=== PATIENT | male | born 1990 | race Caucasian/White ===

== ENCOUNTER 2020-08-29 14:10 | Outpatient (REF) | payer MEDICAID, SELFPAY ==
--- NOTE | ~2020-08-29 | XR_ITS ---
EXAMINATION: XR HAND, RIGHT CLINICAL INFORMATION: Pain in right fingers. COMPARISON: None TECHNIQUE: PA, lateral, and oblique views of the right hand. FINDINGS: No fracture or dislocation. Normal carpal alignment. No significant joint space narrowing or marginal osteophytes. No osseous erosion. No periarticular osteopenia. No abnormal soft tissue calcification. XR/XR hand RT min 3V IMPRESSION: Unremarkable examination.
[2020-08-29 15:22] LABS: Uric Acid 6.8 mg/dL (3.4-7.0)
[2020-08-30 18:16] LABS: Lyme Abs Screen <0.90 index
== END 2020-08-29 14:11 | disposition home or self-care (01) ==
LOC: HO.LAB 14:10
PROVIDERS: Absent Provider Internal Medicine; PCP Internal Medicine; Visit Provider Emergency Medicine
DX: M79.644 Pain in right finger(s) (principal)
CPT/HCPCS: 36415; 73130; 84550; 86617; 86618

== ENCOUNTER 2022-02-11 | Outpatient (REF) | payer MEDICAID, SELFPAY ==
--- NOTE | ~2022-02-11 | XR_ITS ---
EXAMINATION: XR KNEE, BILATERAL CLINICAL INFORMATION: Pain. COMPARISON: None TECHNIQUE: 3 views of each knee. FINDINGS: Right: Bone alignment is normal. No fracture or dislocation. Lucency in the lateral aspect of the medial femoral condyle questionable for old osteochondritis dissecans or subchondral injury. Soft tissue calcification projecting over the suprapatellar bursae questionable for ossified loose body. No joint effusion. Normal-appearing joint spaces. Left: Bone alignment is normal. No fracture or dislocation. Normal joint spaces. Small joint effusion. Osteophyte at the patellar tendon insertion to the tibial tuberosity. XR/XR knee standing BI IMPRESSION: Left: Small joint effusion. Osteophyte at the patellar tendon insertion to the tibial tuberosity. Right: Question old osteochondritis dissecans or subchondral injury to the lateral aspect of the medial femoral condyle. Soft tissue ossification over the suprapatellar bursa questionable for ossified intra-articular loose body.
--- NOTE | ~2022-02-11 | XR_ITS ---
EXAMINATION: XR KNEE, BILATERAL CLINICAL INFORMATION: Pain. COMPARISON: None TECHNIQUE: 3 views of each knee. FINDINGS: Right: Bone alignment is normal. No fracture or dislocation. Lucency in the lateral aspect of the medial femoral condyle questionable for old osteochondritis dissecans or subchondral injury. Soft tissue calcification projecting over the suprapatellar bursae questionable for ossified loose body. No joint effusion. Normal-appearing joint spaces. Left: Bone alignment is normal. No fracture or dislocation. Normal joint spaces. Small joint effusion. Osteophyte at the patellar tendon insertion to the tibial tuberosity. XR/XR knee RT 2V IMPRESSION: Left: Small joint effusion. Osteophyte at the patellar tendon insertion to the tibial tuberosity. Right: Question old osteochondritis dissecans or subchondral injury to the lateral aspect of the medial femoral condyle. Soft tissue ossification over the suprapatellar bursa questionable for ossified intra-articular loose body.
--- NOTE | ~2022-02-11 | XR_ITS ---
EXAMINATION: XR KNEE, BILATERAL CLINICAL INFORMATION: Pain. COMPARISON: None TECHNIQUE: 3 views of each knee. FINDINGS: Right: Bone alignment is normal. No fracture or dislocation. Lucency in the lateral aspect of the medial femoral condyle questionable for old osteochondritis dissecans or subchondral injury. Soft tissue calcification projecting over the suprapatellar bursae questionable for ossified loose body. No joint effusion. Normal-appearing joint spaces. Left: Bone alignment is normal. No fracture or dislocation. Normal joint spaces. Small joint effusion. Osteophyte at the patellar tendon insertion to the tibial tuberosity. XR/XR knee LT 2V IMPRESSION: Left: Small joint effusion. Osteophyte at the patellar tendon insertion to the tibial tuberosity. Right: Question old osteochondritis dissecans or subchondral injury to the lateral aspect of the medial femoral condyle. Soft tissue ossification over the suprapatellar bursa questionable for ossified intra-articular loose body.
== END 2022-02-11 00:01 | disposition home or self-care (01) ==
LOC: HO.HOSX
PROVIDERS: Visit Provider Physician Assistant
DX: M17.12 Unilateral primary osteoarthritis, left knee (principal); M17.11 Unilateral primary osteoarthritis, right knee; M23.42 Loose body in knee, left knee; M23.41 Loose body in knee, right knee; M22.2X9 Patellofemoral disorders, unspecified knee
CPT/HCPCS: 73560; 73565; 99202

== ENCOUNTER 2022-02-27 15:02 | Outpatient (REF) | payer MEDICAID, SELFPAY ==
--- NOTE | ~2022-02-27 | MR_ITS ---
EXAMINATION: MR KNEE WITHOUT CONTRAST, RIGHT CLINICAL INFORMATION: Right knee pain. Osteoarthritis. Question osteochondritis dissecans. COMPARISON: Right knee radiographs dated 02/11/2022. TECHNIQUE: MRI of the knee without contrast was performed using routine sequences on a high-field scanner. FINDINGS: MENISCI: Medial Meniscus: Intact. Lateral Meniscus: Intact. LIGAMENTS: Cruciate: Intact. Collateral: Intact. EXTENSOR MECHANISM: Intact. ARTICULAR CARTILAGE/BONE: Patellofemoral Compartment: Intact articular cartilage. Medial Compartment: Osteochondral lesion at the weightbearing medial femoral condyle measuring approximately 2.6 x 1.9 cm (AP by ML) with a depth of 1.1 cm. There is overlying articular cartilage signal heterogeneity and surface irregularity with underlying subchondral cystic change and marrow edema. Lateral Compartment: Intact articular cartilage. JOINT FLUID AND BURSAE: Trace joint effusion. Osteochondral loose body within the lateral aspect of the suprapatellar joint recess measuring approximately 0.7 x 1.6 x 1.9 cm. MR/MR knee RT wo con IMPRESSION: 1. Osteochondral lesion at the weightbearing medial femoral condyle measuring up to 2.6 x 1.9 cm (AP by ML) with a depth of 1.1 cm. Overlying articular cartilage signal heterogeneity and surface irregularity with underlying subchondral cystic change and marrow edema. Osteochondral loose body within the lateral aspect of the suprapatellar joint recess measuring up to 1.9 cm. 2. Trace joint effusion. 3. No acute meniscal or ligamentous injury.
--- NOTE | ~2022-02-27 | MR_ITS ---
EXAMINATION: MR KNEE WITHOUT CONTRAST, LEFT CLINICAL INFORMATION: Left knee pain. Osteoarthritis. COMPARISON: Left knee radiographs dated 02/11/2022. TECHNIQUE: MRI of the knee without contrast was performed using routine sequences on a high-field scanner. FINDINGS: MENISCI: Medial Meniscus: Intact Lateral Meniscus: Intact LIGAMENTS: Cruciate: Intact Collateral: Intact EXTENSOR MECHANISM: Intact ARTICULAR CARTILAGE/BONE: Patellofemoral Compartment: Intact articular cartilage. Medial Compartment: Intact articular cartilage. Lateral Compartment: Osteochondral lesion at the superior aspect of the lateral tibial spine measuring 0.6 cm in ML dimension with prominent underlying marrow edema. Adjacent lateral tibial plateau and lateral femoral condyle signal heterogeneity and surface irregularity with tiny marginal osteophytes. JOINT FLUID AND BURSAE: Trace joint effusion. Osteochondral loose body anterior to the lateral meniscus measuring up to 0.7 cm in greatest dimension. MR/MR knee LT wo con IMPRESSION: 1. Osteochondral lesion at the superior aspect of the lateral tibial spine measuring up to 0.6 cm with prominent underlying marrow edema. Osteochondral loose body anterior to the lateral meniscus measuring up to 0.7 cm. 2. Mild lateral compartment arthrosis. Trace joint effusion. 3. No acute meniscal or ligamentous injury.
== END 2022-02-27 15:03 | disposition home or self-care (01) ==
LOC: HO.MRI 15:02
PROVIDERS: Visit Provider Physician Assistant
DX: M17.0 Bilateral primary osteoarthritis of knee (principal); M24.00 Loose body in unspecified joint
CPT/HCPCS: 73721

== ENCOUNTER → 2022-03-25 10:41 | Outpatient (BNVA) | payer MEDICAID, SELFPAY | PROVIDERS: PCP Internal Medicine; Visit Provider Physician Assistant | DX: M89.9 Disorder of bone, unspecified (principal); M94.9 Disorder of cartilage, unspecified; M23.42 Loose body in knee, left knee | CPT/HCPCS: 99212 ==

== ENCOUNTER → 2022-04-09 10:36 | Outpatient (BNVA) | payer MEDICAID, SELFPAY | PROVIDERS: PCP Internal Medicine; Visit Provider Orthopaedic Surgery | DX: M89.9 Disorder of bone, unspecified (principal); M94.9 Disorder of cartilage, unspecified | CPT/HCPCS: 99212 ==

== ENCOUNTER 2023-02-18 12:26 | Outpatient (AMB) | payer MEDICAID, SELFPAY ==
--- NOTE | 2023-02-18 12:28 | MHC.OFFVIS ---
Intake Intake Visit Reasons: OV-Right knee - Discuss Arthroscopy Intake Note: Lillian is a 32 year old male who presents today for a follow up of his right knee pain. At his last appt Arthroscopic surgery was discussed but patient was not ready to undergo surgery at that time. Since then his pain has increased and is interested in surgical intervention. Allergies No Known Allergies [No Known Allergies*] Allergy (Verified 04/09/22 11:00) HPI OV-Right knee - Discuss Arthroscopy HPI Details Lillian is a 32 year old man who returns to discuss surgery for his right knee. He was last seen on 04/09/22 for an MRI review, and knee was discussed due to a possible loose body and osteochondral lesion in his knee. He returns today saying his pain has increased and he would like to discuss surgery again. He has catching and giving way and feels like there is something catching. PFSH Medical History Heart murmur Social History Patient Tobacco Use Status: Never used Tobacco Current occupational status: unemployed Review of Systems Const All systems reviewed & are unremarkable except as noted in HPI and below Physical Exam Const General: no acute distress, alert and awake Orientation/consciousness: patient oriented x3 HEENT Head: Yes normocephalic and Yes atraumatic Eyes EOM: EOMs intact bilaterally Resp Effort & Inspection: normal respiratory effort and able to speak in complete sentences Cardio Jugular venous distension: no JVD Skin General skin exam: turgor normal Rashes: no rashes Neuro General: patient oriented x3 Extrem Other: 1+ effusion over right knee with tenderness to palpation medial femoral condyle. + antalgic gait Psych Appearance: grossly normal Affect: normal affect Attitude: cooperative Results Reviewed Results Reviewed: I personally reviewed the MR images. Right knee: Osteochondral lesion at the weightbearing medial femoral condyle measuring up to 2.6 x 1.9 cm (AP by ML) with a depth of 1.1 cm. Overlying articular cartilage signal heterogeneity and surface irregularity with underlying subchondral cystic change and marrow edema. Osteochondral loose body within the lateral aspect of the suprapatellar joint recess measuring up to 1.9 cm. Assessment & Plan Assessment & Plan (1) Osteochondral lesion: Comment: Right knee. Code(s): M89.9 - Disorder of bone, unspecified; M94.9 - Disorder of cartilage, unspecified Plan: This is a 32 year old man with an osteochondral lesion and likely loose body in the right knee. He has pain with activity and WB, which has worsened since he was last seen. I discussed the diagnosis and treatment options.I recommend right knee chondroplasty, and loose body removal. I recommended two-stage surgery in which the 1st is exploration with removal of loose body and chondroplasty and in the future I do anticipate the need for osteochondral allograft. I discussed this with him. I discussed the risks, benefits, and alternatives including, but not limited to, the risk of pain, infection, stiffness, need for further surgery as well as potential medical complications such as blood clots, pulmonary embolism and cardiac complications. I discussed the recovery timeline and process as well as the importance of PT. Lillian is a good candidate for this surgery, and he wishes to proceed with this decision. He will speak with Krystal to schedule this procedure. Coding Level of Care Code Est Pt Level 4 (22918) Diagnoses Osteochondral lesion M89.9; M94.9
== END 2023-02-18 13:19 | disposition home or self-care (01) ==
PROVIDERS: PCP Internal Medicine; Visit Provider Orthopaedic Surgery
DX: M89.9 Disorder of bone, unspecified (principal); M94.9 Disorder of cartilage, unspecified
CPT/HCPCS: 99214

== ENCOUNTER → 2023-02-18 12:26 | Outpatient (BNVA) | payer MEDICAID, SELFPAY | PROVIDERS: PCP Internal Medicine; Visit Provider Orthopaedic Surgery | DX: M89.9 Disorder of bone, unspecified (principal); M94.9 Disorder of cartilage, unspecified | CPT/HCPCS: 99212 ==

== ENCOUNTER 2023-03-18 09:36 | Outpatient (AMB) | payer MEDICAID, SELFPAY ==
--- NOTE | 2023-03-18 09:37 | A.OFFVIS_ITS ---
Intake Intake Visit Reasons: Pre Op R knee 03/24/23 NE Intake Note: Lillian is a 32 year old male who presents today for a pre op appointment of his right knee 03/24/23 NE. Allergies No Known Allergies [No Known Allergies*] Allergy (Verified 04/09/22 11:00) HPI Pre Op R knee 03/24/23 NE HPI Details 32-year-old male who presents in the off ice today for his preoperative history and physical exam prior to a right knee arthroscopy to be performed on 03/24/[address] Diana. Patient has no known allergy history. Patient is not currently any medication. Patient has a medical history, as follows: -Heart murmur Patient has a surgical history, as follows: -History of an appendectomy [facility] Medical History Heart murmur Surgical History (Updated 03/18/23 @ 09:53 by Robin Goodson) History of appendectomy Social History Patient Tobacco Use Status: Never used Tobacco Current occupational status: unemployed Review of Systems Const All systems reviewed & are unremarkable except as noted in HPI and below Physical Exam Const General: no acute distress, alert and awake Orientation/consciousness: patient oriented x3 HEENT Head: Yes normocephalic and Yes atraumatic Eyes EOM: EOMs intact bilaterally Resp Effort & Inspection: normal respiratory effort and able to speak in complete sentences Cardio Jugular venous distension: no JVD Skin General skin exam: turgor normal Rashes: no rashes Neuro General: patient oriented x3 Extrem Other: Right knee: Skin is clean, dry, and intact 1+ effusion over right knee with tenderness to palpation medial femoral condyle. + antalgic gait Psych Appearance: grossly normal Affect: normal affect Attitude: cooperative Assessment & Plan Assessment & Plan (1) History of appendectomy: Code(s): Z90.49 - Acquired absence of other specified parts of digestive tract (2) Osteochondral lesion: Comment: Right knee. Code(s): M89.9 - Disorder of bone, unspecified; M94.9 - Disorder of cartilage, unspecified Plan Mr. German Vela is a 32-year-old male who presents in the office today for his preoperative history and physical exam prior to a right knee arthroscopy to be performed on 03/24/[address] Diana. Patient has no known allergy history. Patient is not currently any medication. Patient has a medical history, as follows: -Heart murmur Patient has a surgical history, as follows: -History of an appendectomy I discussed in detail the procedure and what to expect pre and post operatively. We discussed the risks, benefits and alternatives to the surgery as well as the rehabilitation course. The risks; which include, but are not limited to infection, bleeding, nerve injury, ongoing pain, swelling, and stiffness, perioperative risk of injury to bones and soft tissues, and blood clots. I have answered all questions and with their understanding they have consented to move forward with a right knee arthroscopy for removal of loose body and chondroplasty to be performed on 03/24/[address] Espinoza Diana. He understands that it was discussed that this is phase I of his treatment plan. Follow up will be at the post operative appointment on 04/01/2023 or sooner if needed. Please call Pepper, his partner, at [phone] after the surgery. Patient Instructions: Scribed for Jackie Spicer PA-C by María Murray manager of medical, on 03/18/2023 at 9:38 am, EST. Coding Level of Care Code Global (21695) Diagnoses History of appendectomy Z90.49 Osteochondral lesion M89.9; M94.9
== END 2023-03-18 09:54 | disposition home or self-care (01) ==
PROVIDERS: PCP Internal Medicine; Visit Provider Physician Assistant
DX: M89.9 Disorder of bone, unspecified (principal); M94.9 Disorder of cartilage, unspecified
CPT/HCPCS: 99024

== ENCOUNTER → 2023-03-18 09:36 | Outpatient (BNVA) | payer MEDICAID, SELFPAY | PROVIDERS: PCP Internal Medicine; Visit Provider Physician Assistant | DX: M94.9 Disorder of cartilage, unspecified (principal); M89.9 Disorder of bone, unspecified; Z90.49 Acquired absence of other specified parts of digestive tract | CPT/HCPCS: 99212 ==

== ENCOUNTER 2023-03-24 06:16 | Day surgery (SDC) | payer MEDICAID, SELFPAY ==
--- NOTE | 2023-03-23 12:00 | HO.ANESPROP2 ---
Documented by User: Rhoda Sagastume NP 03/23/23 12:01 HPI - Anesthesia Eval Consult details Narrative: 32yo M for Right nee Arthroscopy PMFSH Active Problems Active Problems: All Active Problems (Updated 03/25/22 @ 11:01 by Arya Blood) History of appendectomy (Acute) Loose body of left knee (Acute) Osteochondral lesion (Acute) Patella-femoral syndrome (Acute) Loose body in joint (Acute) Past Medical History Medical History Heart murmur Surgical History Surgical History History of appendectomy Social History Social History Patient Tobacco Use Status: Never used Tobacco Have you been hit, kicked, punched, or otherwise hurt by someone within the past year? If so, by whom?: No Are you DNR?: No Advance Directives: No Advance Directives Information Provided: Yes Recently lost weight without trying: No Eating poorly because of decreased appetite: No Nutrition Risks: No Nutritional Risk Poor oral hygiene: No Current occupational status: unemployed Meds Allergies Allergy/AdvReac Type Severity Reaction Status Date / Time No Known Allergies Allergy Verified 04/09/22 11:00 [No Known Allergies*] Home Medications Medication Instructions Recorded Confirmed Last Taken Type No Known Home Meds 02/11/22 02/11/22 Unknown History Assessment and Plan Assessment Anesthesia Assessment: Chart Reviewed Documented by User: Sanam العلي MD 03/24/23 08:30 HPI - Anesthesia Eval Consult details Narrative: 32yo M for Right knee Arthroscopy PMFSH Active Problems Active Problems: All Active Problems (Updated 03/24/23 @ 07:23 by Sanam العلي MD) History of appendectomy (Acute) Loose body of left knee (Acute) Osteochondral lesion (Acute) Patella-femoral syndrome (Acute) Loose body in joint (Acute) Denies JAZ Past Medical History Medical History Heart murmur Family History Family history of problems with anesthesia: No Surgical History Surgical History History of appendectomy History of Problems with Anesthesia: No Social History Social History Patient Tobacco Use Status: Never used Tobacco Have you been hit, kicked, punched, or otherwise hurt by someone within the past year? If so, by whom?: No Are you DNR?: No Advance Directives: No Advance Directives Information Provided: Yes Recently lost weight without trying: No Eating poorly because of decreased appetite: No Nutrition Risks: No Nutritional Risk Poor oral hygiene: No Current occupational status: unemployed Meds Allergies Allergy/AdvReac Type Severity Reaction Status Date / Time No Known Allergies Allergy Verified 04/09/22 11:00 [No Known Allergies*] Home Medications Medication Instructions Recorded Confirmed Last Taken Type No Known Home Meds 02/11/22 02/11/22 Unknown History Exam Height,Weight and Vital Signs: Height 5 ft 6 in Weight 85.729 kg Vital Signs Temp Pulse Resp BP Pulse Ox O2 Del Method 03/24/23 06:44 98.0 F 71 18 127/77 98 Room Air Airway Mallampati Class: III TM Dist: >3cm Neck ROM: Full Loose/Missing/Broken Teeth: Yes (Chipped top front right. Missing 1 tooth each side bottom Right and Left. Denies loose teeth) Heart: RRR. Murmur not appreciated Lungs: CTAB Assessment and Plan Assessment Anesthesia Assessment: Anesthesia Plan Discussed Final Anesthetic Review Family History of Problems with Anesthesia: No History of Problems with Anesthesia: No NPO: Yes ASA Class: II Final Preanesthetic Review: No Changes in Pt Med Stat, Meds/Allgs Chart Reviewed, Consent Obtained/Reviewed and Anes Risks/Benef Reviewed Patient Risk: Low Procedure Risk: Low Assessment/Block/Sedation in SS: Assess/Block/Sedation-SS Anesthetic Plan Anesthetic Plan: GA Disposition: Standard PACU
[2023-03-24] VITALS (7 sets, daily range): BP systolic 91–134; BP diastolic 52–89; PULSE 71–93; RESP 16–18; TEMP 36.3–36.7; O2SAT 97–99; BMI 30.5
[2023-03-24] MEDS: Lactated Ringers 1,000 ML 100 ML IVCONT (07:05)
[2023-03-24] MEDS: Acetaminophen 1,000 MG/100 ML PIGGYBACK 400 MG IV (09:08)
[2023-03-24] MEDS: oxyCODONE HCl Immed Release 5 MG TABLET PO (09:08)
--- NOTE | 2023-03-24 12:09 | PM.OP ---
Brief Operative Note Date of Service: 03/24/23 Pre-op diagnosis: Right knee forign body Post-op diagnosis: other (1) ACL tear 2) post traumatic OCD right MFC) Procedure: CHnodroplasty and removal of loose bodies Surgeon: Espinoza Diana MD Anesthesia: GETA Was an Rotary Drier Operator used for this Procedure?: No Estimated blood loss (mL): 5 Tourniquet time (min): 30 Pathology: none sent Condition: stable Disposition: PACU
--- NOTE | 2023-03-27 08:09 | W.PM.OPN ---
Operative Note Operative Note Date of Service: 03/24/23 Narrative: Date of Service: 03/24/23 Pre-op diagnosis: Right knee foreign body Post-op diagnosis: other (1) ACL tear 2) post traumatic OCD right MFC) Procedure: Chondroplasty and removal of loose bodies Surgeon: Espinoza Diana MD Anesthesia: GETA Was an Gluing Machine Operator Automatic used for this Procedure?: No Estimated blood loss (mL): 5 Tourniquet time (min): 30 Pathology: none sent Condition: stable Disposition: PACU Procedure in detail: Patient was brought to the operating room placed supine on the arthroscopic table and prepped and draped in standard sterile fashion. A time-out was called to identify proper site proper procedure proper surgeon and IV antibiotics per weight were administered. I began by exsanguinating the limb and insufflating tourniquet to 300 mm Hg. Then made a standard anterolateral stab incision. The knee was insufflated with water and 30 degree arthroscope was placed. There were no fibrillations of the patella and the suprapatellar pouch and the gutters were clean. I descended into the medial compartment where I made my medial portal under direct visualization. There was a [id number] cartilage lesion of the MFC. There was a flap that was easily removed with a shaver. There was soft cartilage in the OCD with no exposed subchondral bonee A shaver was used to debride all loose tissue and any unstable flaps. The medial meniscus was intact. The root was intact and there was no changes in the tibial plateau. I then entered the notch and examined the ACL was examined.There was an empty wall sign and a portion of the posteromedial bundle of the ACL was intact. The lateral compartment also was without the need for intervention. I then removed all instrumentation and ranged his knee, He hada + pivot shift. I then closed the portals with skin glue. 25 mL of 2% Marcaine with epinephrine was injected into the joint and the surrounding soft tissues. Patient was then placed in sterile dressing extubated brought recovery room stable condition. There were no known complications. He will follow up with me next week adn we will discuss these findings. I reviewed his MRI again and there appears to be an intact ACL on MRI.
== END 2023-03-24 11:06 | disposition home or self-care (01) ==
PROVIDERS: PCP Internal Medicine; Visit Provider Orthopaedic Surgery
PROC: (CPT 29870; principal; 2023-03-24 07:30)
DX: M79.5 Residual foreign body in soft tissue (principal); M94.9 Disorder of cartilage, unspecified; R26.89 Other abnormalities of gait and mobility; M25.461 Effusion, right knee; R01.1 Cardiac murmur, unspecified; Z90.49 Acquired absence of other specified parts of digestive tract
CPT/HCPCS: 29877; J0131; J0171; J0690; J1100; J1885; J2250; J2405; J2704; J2795; J3010

== ENCOUNTER → 2023-03-24 06:16 | Outpatient (BNV) | payer MEDICAID, SELFPAY | PROVIDERS: PCP Internal Medicine; Visit Provider Orthopaedic Surgery | DX: S83.511A Sprain of anterior cruciate ligament of right knee, initial encounter (principal); M11.261 Other chondrocalcinosis, right knee | CPT/HCPCS: 29877 ==

== ENCOUNTER 2023-03-29 12:24 | Outpatient (AMB) | payer MEDICAID, SELFPAY ==
--- NOTE | 2023-03-29 12:28 | MHC.OFFVIS ---
Intake Intake Visit Reasons: PO R knee 03/24/23 NE Intake Note: Lillian 32 yr old male presents today for his P/O visit for his right knee 03/24/23 NE. States he is doing well however his pain increases when walking. Allergies No Known Allergies [No Known Allergies*] Allergy (Verified 03/29/23 12:33) HPI PO R knee 03/24/23 NE HPI Details 32-year-old male, who is Maltese speaking, presents in the office today 5 days status post right knee chondroplasty and removal of loose body, which was performed on 03/24/[address] Diana. While in the office today the patient reports overall he is doing well, however, his pain increases when ambulating. [facility] Medical History Heart murmur Surgical History History of appendectomy Social History Patient Tobacco Use Status: Never used Tobacco Current occupational status: unemployed Review of Systems Const All systems reviewed & are unremarkable except as noted in HPI and below Physical Exam Const General: cooperative, healthy appearing and no acute distress Resp Effort & Inspection: normal respiratory effort and able to speak in complete sentences Cardio Rate: regular rate Peripheral pulses: Peripheral pulses 2+ throughout GI Palpation (GI): Soft to palpation Skin Lesions: no lesions Rashes: no rashes Extrem Other: Right knee: Mild to moderate effusion. Most of his pain is located along the medial aspect of the right knee. ROM is 10-90 degrees. NVI. Assessment & Plan Assessment & Plan (1) Osteochondral lesion: Comment: Right knee. Code(s): M89.9 - Disorder of bone, unspecified; M94.9 - Disorder of cartilage, unspecified Plan Mr. German Vela is a 32-year-old male, who is Maltese speaking, presents in the office today 5 days status post right knee chondroplasty and removal of loose body, which was performed on 03/24/[address] Diana. While in the office today the patient reports overall he is doing well, however, his pain increases when ambulating. Dr. Diana was available to see the patient with me while in the office today and a collaborative treatment plan was made. The patient will followup in May for preoperative appointment to discuss ACL reconstruction as a complete ACL tear was discovered during the arthroscopy. Follow up will be at his pre-operative appointment, sooner if needed. Patient Instructions: Scribed for Jackie Spicer PA-C by María Murray medical advisor, on 03/29/2023 at 12:37 pm, EST. Coding Level of Care Code Global (58571) Diagnoses Osteochondral lesion M89.9; M94.9
== END 2023-03-29 13:21 | disposition home or self-care (01) ==
PROVIDERS: PCP Internal Medicine; Visit Provider Physician Assistant
DX: M89.9 Disorder of bone, unspecified (principal); M94.9 Disorder of cartilage, unspecified
CPT/HCPCS: 99024

== ENCOUNTER → 2023-03-29 12:24 | Outpatient (BNVA) | payer MEDICAID, SELFPAY | PROVIDERS: PCP Internal Medicine; Visit Provider Physician Assistant | DX: M89.9 Disorder of bone, unspecified (principal); M94.9 Disorder of cartilage, unspecified | CPT/HCPCS: 99212 ==